=== PATIENT | female | born 1945 | race Caucasian/White ===

== ENCOUNTER 2017-07-07 14:33 | Outpatient (CLI) | payer OTHER | END 2017-07-07 14:34 | disposition home or self-care (01) | LOC: BICMAMMO 14:33 | PROVIDERS: ATTEND Obstetrics & Gynecology | DX: Z12.31 Encounter for screening mammogram for malignant neoplasm of breast (principal); R92.1 Mammographic calcification found on diagnostic imaging of breast | CPT/HCPCS: 77063; 77067 ==

== ENCOUNTER 2017-09-16 10:30 | Outpatient (CLI) | payer OTHER | END 2017-09-16 10:31 | disposition home or self-care (01) | LOC: CTENTCT 10:30 | PROVIDERS: ATTEND Otolaryngology Plastic Surgery within the Head & Neck | DX: J01.91 Acute recurrent sinusitis, unspecified (principal) | CPT/HCPCS: 70486 ==

== ENCOUNTER 2018-03-24 07:38 | Day surgery (SDC) | payer BC ==
[2018-03-23 09:08] VITALS: BMI 22.9
[~2018-03-24 07:38] MED LIST: Cyclopentolate 1% Opth Drop 2 ML BOT FS SCH; Fentanyl 100 MCG/2 ML VIAL ONE; Fluorouracil 100 MG, Enoxaparin Sodium 25 MG, EPINEPHrine 0.3 MG in Ophthalmic Irrigati... FS SCH; Midazolam HCl 2 mg/2 ml Vial ONE; Phenylephrine 2.5% Ophth Soln 5 ML BOT FS SCH
[2018-03-24] MEDS ORDERED: Phenylephrine 2.5% Ophth Soln 5 ML BOT ONE (08:08)
[2018-03-24] MEDS ORDERED: Cyclopentolate 1% Opth Drop 2 ML BOT ONE (08:08)
[2018-03-24] MEDS ORDERED: Triamcinolone 40 MG/ML VIAL ONE (10:30)
[2018-03-24] MEDS ORDERED: PROPOFOL 200 MG/20 ML VIAL ONE (10:30)
[2018-03-24] MEDS ORDERED: Bupivacaine 0.75% 10 ML AMP ONE (10:30)
[2018-03-24] MEDS ORDERED: Maxitrol 0.1% Opth Oint 3.5 GM TUBE ONE (10:30)
[2018-03-24] MEDS ORDERED: Lidocaine 4% PF 5 ML AMP ONE (10:30)
[2018-03-24] MEDS ORDERED: Indocyanine Green 25 MG/10 ML VIAL ONE (10:30)
[2018-03-24] MEDS ORDERED: CEFAZOLIN 1 GM VIAL ONE (10:30)
[2018-03-24] MEDS ORDERED: Lidocaine 1% PF 5 ML VIAL ONE (10:30)
--- NOTE | 2018-05-11 22:43 | OP ---
DATE OF PROCEDURE: 03/24/2018 PREOPERATIVE DIAGNOSIS: Macular hole, left eye. POSTOPERATIVE DIAGNOSIS: Macular hole, left eye. PROCEDURE PERFORMED: Pars plana vitrectomy and internal limiting membrane peel, left eye. ANESTHESIA: Local with monitored anesthesia care. DESCRIPTION OF PROCEDURE: The patient was identified in the preoperative holding area. Appropriate informed consent for the planned surgical procedure of left eye had been obtained. The patient was transported to the operative suite, where appropriate cardiopulmonary monitoring was established. Local anesthesia was obtained using retrobulbar modified Van Lint lid block using 50:50 mixture of 4% lidocaine and 0.75% bupivacaine. The patient was prepped and draped in usual sterile manner for ophthalmic surgery on the left eye. Lid speculum was placed on the left eye. A 25-gauge trocar was placed through the conjunctiva and sclera superotemporally, inferotemporally, and superonasally. Infusion line was placed inferotemporally. Light pipe and vitreous cutter were inserted into the eye. Core vitrectomy was performed. Posterior hyaloid face was elevated using vacuum suction peeled across the macula. Indocyanine signing green dye was infused on the posterior pole x1, identifying the epiretinal membrane and internal limiting membrane. These were elevated using end-gripping forceps and peeled across the macula. Indirect ophthalmoscopy was used to examine the retina 360 degrees. No holes, breaks, or tears were identified. A 10-minute was allowed for fluid to drain posteriorly. A 28% sulfur hexafluoride gas was infused into the eye. Superior sclerotomy suture was closed. Retrobulbar Kenalog and subconjunctival Ancef were placed. Antibiotic ointment was placed and eye was patched and shielded. The patient was taken to the postoperative recovery in good condition, having suffered no immediate perioperative complications. The patient was instructed to keep the patch and shield on, avoid lifting and bending, avoid flat and back positioning. Followup in morning with Dr. Mendoza. Job ID: [id number]
== END 2018-03-24 11:45 | disposition home or self-care (01) ==
LOC: SDC 07:38
PROVIDERS: ATTEND Ophthalmology Retina Specialist
PROC: 08953ZZ Drainage of Left Vitreous, Percutaneous Approach (ICD-10-PCS; principal; 2018-03-24)
DX: H35.342 Macular cyst, hole, or pseudohole, left eye (principal); Z79.899 Other long term (current) drug therapy
CPT/HCPCS: 67025; J0171; J0690; J1650; J2001; J2250; J2704; J3010; J3301; J3490; J9190

== ENCOUNTER 2020-04-03 13:56 | Outpatient (CLI) | payer MEDICARE ==
--- NOTE | 2020-04-03 14:20 | MMO ---
Bilateral MAMMO Bilat Screen [facility]. CLINICAL HISTORY: Patient is 74 years old and is seen for screening. The patient has no family history of breast cancer. The patient has no personal history of cancer. The patient has a history of bilateral Implants in 2007 and left Cyst Aspiration in unknown. VIEWS: The views performed were: bilateral craniocaudal with tomosynthesis and bilateral mediolateral oblique with tomosynthesis. FILMS COMPARED: The present examination has been compared to prior imaging studies performed at [facility] on 08/05/2005, 09/14/2006, 06/26/2014 and 07/07/2017. This study has been interpreted with the assistance of computer-aided detection. MAMMOGRAM FINDINGS: There are scattered fibroglandular densities. There are benign appearing calcifications seen in both breasts. There are no suspicious masses, suspicious calcifications, or new areas of architectural distortion. IMPRESSION: THERE IS NO MAMMOGRAPHIC EVIDENCE OF MALIGNANCY. A ROUTINE FOLLOW-UP MAMMOGRAM IN 1 YEAR IS RECOMMENDED. THE RESULTS OF THIS EXAM WERE SENT TO THE PATIENT. ACR BI-RADS Category 2 - Benign finding MAMMOGRAPHY NOTE: 1. A negative mammogram report should not delay a biopsy if a dominant of clinically suspicious mass is present. 2. Approximately 10% to 15% of breast cancers are not detected by mammography. 3. Adenosis and dense breasts may obscure an underlying neoplasm. Reported by: ARABELLA SHANNON MD Electonically Signed: [id number]
== END 2020-04-03 13:57 | disposition home or self-care (01) ==
LOC: BICMAMMO 13:56
PROVIDERS: ATTEND Obstetrics & Gynecology
DX: Z12.31 Encounter for screening mammogram for malignant neoplasm of breast (principal); Z98.82 Breast implant status
CPT/HCPCS: 77063; 77067

== ENCOUNTER 2021-04-07 10:20 | Outpatient (CLI) | payer MEDICARE | END 2021-04-07 10:21 | disposition home or self-care (01) | LOC: BICMAMMO 10:20 | PROVIDERS: ATTEND Obstetrics & Gynecology | DX: Z12.31 Encounter for screening mammogram for malignant neoplasm of breast (principal); Z98.82 Breast implant status | CPT/HCPCS: 77063; 77067 ==

== ENCOUNTER 2022-04-29 10:09 | Outpatient (CLI) | payer MEDICARE | END 2022-04-29 10:10 | disposition home or self-care (01) | LOC: BICMAMMO 10:09 | PROVIDERS: ATTEND Internal Medicine | DX: Z12.31 Encounter for screening mammogram for malignant neoplasm of breast (principal); Z98.890 Other specified postprocedural states; Z98.82 Breast implant status | CPT/HCPCS: 77063; 77067 ==

== ENCOUNTER 2022-08-11 07:10 | Day surgery (SDC) | payer MEDICARE ==
[2022-08-07 15:08] VITALS: BMI 23.3
[2022-08-11] MEDS ORDERED: Bupivacaine/Epinephrine 0.25% 30 ML VIAL ONE (09:17)
[2022-08-11] MEDS ORDERED: FENTANYL 50 MCG/ML 1 ML VIAL ONE ×2 (09:20→11:04)
[2022-08-11] MEDS ORDERED: SUGAMMADEX SODIUM 200 MG/2 ML VIAL ONE (09:20)
[2022-08-11] MEDS ORDERED: Sodium Chloride 0.9% 100 ML ONE (09:24)
[2022-08-11] MEDS ORDERED: CEFAZOLIN 2 GM VIAL ONE (09:24)
[2022-08-11] MEDS ORDERED: Lidocaine 1% PF 5 ML VIAL ONE (09:37)
[2022-08-11] MEDS ORDERED: PROPOFOL 200 MG/20 ML VIAL ONE (09:37)
[2022-08-11] MEDS ORDERED: Ondansetron PF 4 MG/2 ML Vial ONE (09:37)
[2022-08-11] MEDS ORDERED: Rocuronium Bromide 10 MG/ML (10ML VIAL) ONE (09:37)
[2022-08-11] MEDS ORDERED: ePHEDrine 50 MG/ML VIAL ONE (09:37)
[2022-08-11] MEDS ORDERED: Dexamethasone 20 MG/5 ML VIAL ONE (09:37)
[2022-08-11] MEDS ORDERED: Labetalol HCl 100 MG/20 ML VIAL ONE (09:37)
[2022-08-11] MEDS ORDERED: HYDROcodone/Acetaminophen 5/325 mg Tablet ONE (12:22)
== END 2022-08-11 13:32 | disposition home or self-care (01) ==
LOC: SDC 07:10
PROVIDERS: ATTEND Surgery
PROC: 0FT44ZZ Resection of Gallbladder, Percutaneous Endoscopic Approach (ICD-10-PCS; principal; 2022-08-11)
PROC: 0FB04ZX Excision of Liver, Percutaneous Endoscopic Approach, Diagnostic (ICD-10-PCS; 2022-08-11)
DX: K75.81 Nonalcoholic steatohepatitis (NASH) (principal); K80.10 Calculus of gallbladder with chronic cholecystitis without obstruction; K74.01 Hepatic fibrosis, early fibrosis; K21.9 Gastro-esophageal reflux disease without esophagitis; Z77.22 Contact with and (suspected) exposure to environmental tobacco smoke (acute) (chronic); Z79.899 Other long term (current) drug therapy
CPT/HCPCS: 47379; 47562; J3010; 88304; 88307; 88313; C1776; J1100; J2405; J2704; J3490